=== PATIENT | female | born 1985 | race Caucasian/White ===

== ENCOUNTER 2023-03-01 11:19 | Emergency (ER) | payer BC, SELFPAY ==
[2023-03-01 11:21] VITALS: BP 141/101
[2023-03-01 11:30] VITALS: BMI 33.1
[2023-03-01 11:51] LABS: % Basophils 0.5 % (0-2); % Eosinophils 1.1 % (0-6); % Immature Granulocytes 0.2 % (0-0.5); % Lymphocytes 24.2 % (20.5-51.1); % Monocytes 4.4 % (1.7-9.3); % Neutrophils 69.6 % (42.2-75.2); Absolute Eosinophils 0.1 10^3/uL (0-0.7); Absolute Monocytes 0.4 10^3/uL (0.1-0.6); Absolute Neutrophils 5.6 10^3/uL (1.4-6.5); Hematocrit 40.6 % (37.0-47.0); Hemoglobin 13.9 g/dL (12.0-16.0); Mean Corp Hgb Conc. 34.2 g/dL (33.0-37.0); Mean Corpuscular Hgb 28.3 pg (27.0-31.0); Mean Corpuscular Volume 82.5 fL (81.0-99.0); Mean Platelet Volume 9.4 fL (7.4-10.4); Nucleated Red Blood Cells % 0 %; Platelet Count 327 10^3/uL (130-400); Red Blood Cell Count 4.92 10^6/uL (4.20-5.40); Red Cell Dist. Width 12.3 % (11.5-14.5); White Blood Cell Count 8.1 10^3/uL (4.8-10.8)
[2023-03-01 11:58] LABS: ALT (SGPT) 37 U/L (0-35); AST (SGOT) 37 U/L (14-36); Albumin 4.2 g/dl (3.5-5.0); Alkaline Phosphatase 63 U/L (38-126); Blood Urea Nitrogen 9 mg/dl (7-17); Calcium 9.3 mg/dl (8.4-10.2); Carbon Dioxide 24 mmol/L (22-30); Chloride 103 mmol/L (98-107); Estimated Creatinine Clearance 125 ml/min; Glucose 100 mg/dl (70-99); Potassium 3.9 mmol/L (3.5-5.1); Sodium 138 mmol/L (135-145); Total Bilirubin 0.7 mg/dl (0.2-1.3); Total Protein 7.3 g/dl (6.3-8.2); eGFR > 60.00
[2023-03-01] MEDS: TORADOL 15 MG IV (12:02)
--- NOTE | 2023-03-01 12:22 | ED.GENMED ---
History of Present Illness
General
Chief Complaint: Flank Pain
Source: patient and spouse
Exam Limitations: none
Time Seen by Provider: 03/01/23 11:53
Nursing documentation reviewed up to this point in time: agreed with
Travel History
Have you had any contact with someone who has COVID-19?: No
Do you have any symptoms of coronavirus? Fever > 100 degrees, chills, cough, shortness of breath, sore throat, loss of taste or smell, muscle aches, or headache?: No
History of Present Illness
History of Present Illness:
Patient presents to ED secondary to intermittent right flank/back pain radiating to abdomen, along with some nausea or vomiting over the past 3 days. Denies fever or chills. Denies diarrhea. Denies trauma. Denies difficulty with urination.
Patient states that she has had both gallstones and kidney stones, and is unsure if her symptoms are secondary to either entity. Denies recent illness.
Past History
Past History
ED Past Medical History: Asthma (As child), Other (Kidney stones, Anxiety) and Other
ED Past Surgical History: Urological and Other ([place] teeth)
Social History
Tobacco: Non-smoker
Alcohol: None
Drug: None
Personal:
Living: with family
Employment: Employed
Family History
Family History: Other
Review of Systems
Review of Systems
Allergies reviewed?: Yes
All Other Systems: ROS reviewed and negative except as documented in HPI and ROS
Constitutional: Reports no symptoms; Denies fever or chills
ABD/GI: Reports abdominal pain, nausea and vomiting; Denies diarrhea
: Reports flank pain; Denies difficulty voiding
Musculoskeletal: Reports back pain
Skin: Reports no symptoms
Neurological: Reports no symptoms
Phy Exam
Physical Exam
Physical Exam:
Physical Exam
General: mild painful distress, not acutely ill. afebrile
Head: nc/at. eomi
Neck: supple. no meningeal signs.
Abdomen: normal bowel sounds. not tender.
Neuro: alert and oriented. no focal neurological deficits
Skin: no rash
Psychiatric: well kept. interactive and cooperative
Extremities: no edema. no calf tenderness.
Course
Orders/Labs/Results
Orders:
Orders
03/01/23 11:35
Complete Blood Count/With Diff Urgent
Comprehensive Metabolic Panel Urgent
HCG, Serum Qualitative Screen Urgent
Comment: ADD ON
03/01/23 11:55
Test Result ONCE
03/01/23 11:58
Add On- LAB Urgent
Tests Added?: HCG, qual
03/01/23 12:00
Ketorolac [Toradol] 15 mg .ROUTE .STK-MED ONE
03/01/23 12:01
Ketorolac [Toradol] 15 mg IV NOW STA
03/01/23 12:02
Ketorolac [Toradol] 15 mg IV NOW STA
03/01/23 12:07
CT Abd/pel Without Iv Or Oral Urgent
Comment:
Reason For Exam: right flank pain
Morphine Sulfate 2 mg IV NOW STA
Ondansetron Injectable [Zofran] 4 mg IV NOW STA
03/01/23 12:46
Urinalysis Reflex To Culture Urgent
Date Specimen was Collected: 03/01/23
Time Specimen was Collected: 12:45
Urine Microscopic Reflex Cult Urgent
Abnormal Lab Results
03/01/23 03/01/23
11:35 12:46
Creatinine 0.5 L mg/dL
(0.6-1.0)
Glucose 100 H mg/dl
(70-99)
AST 37 H U/L
(14-36)
ALT 37 H U/L
(0-35)
Ur Occult Blood Reflex Trace A
(Negative)
Leukocyte Esterase Rfl Trace A
(Negative)
Urine Bacteria (Reflex) Few A
(Negative)
03/01/23 11:35
03/01/23 11:35
Vital Signs
Initial and Last Documented VS:
Initial Vital Signs
Temp Pulse Resp BP Pulse Ox
99.1 F 103 20 141/101 95
03/01/23 11:21 03/01/23 11:21 03/01/23 11:21 03/01/23 11:21 03/01/23 11:21
Last Documented Vital Signs
Temp Pulse Resp BP Pulse Ox
98.7 F 76 16 115/71 99
03/01/23 16:30 03/01/23 16:30 03/01/23 16:30 03/01/23 16:30 03/01/23 16:30
MDM/Problems Addressed
MDM/Problems Addressed:
Discussed CT findings with (urology) - recommends starting patient on Flomax along with outpatient f/u with her urologist, . Pt is otherwise afebrile, hemodynamically stable, at time of discharge to the care of her mother. Advised
return to ED with worsening symptoms, i.e. fever/inability to urinate/worsening pain w vomiting. Pt expresses understanding at time of discharge.
*Critical Care Note
Total Time (30-74mins, 75-104mins- exclusive of procedures): Not Applicable
ED Attending Note
-
Portions of this chart may have been created with voice recognition software.� Occasional wrong word or��sound alike� substitutions may have occurred due to the inherent limitations of voice recognition software.
Discharge Plan
Departure
Patient Disposition: Home (Routine Discharge)
Date of Disposition: 03/01/23
Time of Disposition: 15:51
Patient with high blood pressure during this ER visit?: Yes
Discharge Problem:
Hydronephrosis
Instructions: Flank Pain (DC), Hydronephrosis, Adult (DC)
Prescriptions:
New
tamsulosin [Flomax] 0.4 mg capsule
0.4 mg PO DAILY Qty: 7 0RF
ondansetron 4 mg Tablet,Disintegrating
4 mg PO TIDPRN PRN (Reason: nausea/vomiting) Qty: 12 0RF
tramadol 50 mg tablet
50 mg PO Q8H PRN (Reason: Pain) Qty: 14 0RF
ketorolac 10 mg tablet
10 mg PO TID PRN (Reason: Pain) 5 Days Qty: 14 0RF
No Action
citalopram 10 MG tablet
10 mg PO DAILY
citalopram 20 MG tablet
20 mg PO DAILY
multivitamin with folic acid [Tab-A-Nayla] 1 TABLET tablet
1 tab PO DAILY
acetaminophen 325 MG tablet
650 mg PO Q6HPRN PRN (Reason: pain) 0RF
docusate sodium 100 MG capsule
100 mg PO Daily 0RF
ibuprofen 400 MG tablet
400 mg PO Q6H PRN (Reason: moderate pain) Qty: 20 0RF
Rx Instructions:
Take with food
acetaminophen-codeine 1 TABLET tablet
1 tab PO Q6HPRN PRN (Reason: pain) 5 Days Qty: 14 0RF
ibuprofen 600 MG tablet
600 mg PO Q6HPRN PRN (Reason: pain) 5 Days Qty: 20 0RF
tamsulosin 0.4 MG capsule
0.4 mg PO DAILY 20 Days Qty: 20 0RF
Referrals:
Sin Beltran MD [Active] -
Mona Muniz PA [Family Provider] -
Activity Restrictions/Additional Instructions:
As discussed, please follow-up with your urologist for further evaluation and treatment. Please return to ED with worsening symptoms, i.e. fever/inability to urinate/worsening pain/vomiting. Your prescriptions have been sent electronically to [facility]
pharmacy in [facility]. In the meantime, do not recommend traveling until reevaluation with urologist and subsequent resolution of your symptoms.
Interventions
Interventions:
*Risk Screen - Suicide Last Done: 03/01/23 11:31
*General Assessment Last Done: 03/01/23 11:31
*Neglect/Abuse Screening Last Done: 03/01/23 11:31
ED- Fall Risk Assessment Last Done: 03/01/23 16:30
*ED COVID-19 Vaccine History Last Done: 03/01/23 11:21
*Nursing Disposition Last Done: 03/01/23 16:30
MX-Ztuxpc-Cfmeousems Assessment Last Done: 03/01/23 11:31
ED-Female Genitourinary Assessment Last Done: 03/01/23 11:32
Discharge Date and Time
Discharge Date/Time: 03/01/23 16:30
[2023-03-01 12:41] LABS: HCG, Serum Qualitative Screen Negative
[2023-03-01 13:25] LABS: Urine Albumin Negative (Neg - Trace); Urine Bilirubin Negative (Negative); Urine Character Clear (Clear); Urine Color Yellow; Urine Glucose Negative (Negative); Urine Ketone Negative (Negative); Urine Leukocyte Trace (Negative); Urine Nitrite Negative (Negative); Urine Occult Blood Trace (Negative); Urine Urobilinogen Negative (Neg - 1+)
[2023-03-01 14:36] LABS: Urine Amorphous Seen; Urine Squamous Cell 21-25 /LPF (Few)
[2023-03-01 14:37] LABS: Urine Bacteria Few (Negative); Urine Mucus Few; Urine Red Blood Cell 0-2 /HPF (0-2); Urine White Cell 0-2 /HPF (0-5)
[2023-03-01 16:30] VITALS: BP 115/71
== END 2023-03-01 16:30 | disposition home or self-care (01) ==
LOC: EMR 11:19
PROVIDERS: Emergency Medicine; EMERGENCY PHYSICIAN Emergency Medicine; FAMILY PHYSICIAN Physician Assistant
DX: R10.9 Unspecified abdominal pain (principal); R11.2 Nausea with vomiting, unspecified; J45.909 Unspecified asthma, uncomplicated
CPT/HCPCS: 99284; 96374; 74176; 80053; 81003; 81015; 84703; 85025